=== PATIENT | male | born 1990 | race Two or more races ===

== ENCOUNTER 2020-02-06 21:04 | Emergency (ER) | payer SELFPAY ==
[~2020-02-06] VITALS: Ht 172.7 cm; Wt 88.5 kg
--- NOTE | 2020-02-06 21:11 | NUR ---
CAIO FROM HOME C/O NUMBNESS IN HANDS AND FEET. THROAT PAIN, PT TO BED 7, AWAKE, ALERT, -SOB, VSS, PENDING MD HODGE
--- NOTE | 2020-02-06 21:30 | NUR ---
PER DR LUCIO, GIVE ATIVAN 2MG PO
[2020-02-06] MEDS ORDERED: LORAZEPAM 1 MG TABLET ONE (22:16)
[2020-02-06] MEDS: LORAZEPAM 1 MG TABLET PO ONE (22:19)
[2020-02-06] MEDS ORDERED: ONDANSETRON 4 MG TAB.RAPDIS ONE (22:21)
[2020-02-06] MEDS: ONDANSETRON 4 MG TAB.RAPDIS SL ONE (22:22)
[2020-02-06 22:30] VITALS: BP 143/80
--- NOTE | 2020-02-06 23:27 | NUR ---
Patient discharged to home in stable condition. Written and verbal after care instructions given. Patient verbalizes understanding of instruction.
== END 2020-02-06 23:28 | disposition home or self-care (01) ==
LOC: ER 21:05
DX: F41.9 Anxiety disorder, unspecified (principal)
CPT/HCPCS: 99283; Q0162